=== PATIENT | female | born 1940 | race Caucasian/White ===

== ENCOUNTER 2018-01-01 19:28 | Emergency (ER) | payer OTHER, MEDICAID ==
[2018-01-01] MEDS ORDERED: HYDROCOD/APAP 5/325 PREPACK#6 BTL TAKEHOME ONE (22:23)
--- NOTE | 2018-01-01 22:23 | EDPHY ---
H & P Time Seen by Provider: 01/01/18 21:39 HPI/ROS: CHIEF COMPLAINT: Right knee pain HISTORY OF PRESENT ILLNESS: The patient is a 77-year-old female who presents emergency department after dislocating her right patella on . The patient states she slipped and fell. She noticed her patella off to the side. She pushed it popped back into place. She now has right knee swelling. She has ongoing discomfort. No numbness or tingling. No other injury. REVIEW OF SYSTEMS: My complete review of systems is negative except as mentioned in the HPI. Past Medical/Surgical History: Includes hypertension, cataracts Smoking Status: Never smoked Physical Exam: 37.2, 192/95, 84, 18, 95% on room air General Appearance: Alert and no distress. Head: Pupils equal. Normal. Respiratory: No respiratory distress. Cardiac: regular rate and rhythm. Extremities: The patient has swelling on her right knee. There is mild patellar tenderness to palpation. No crepitus. The patient has an abrasion but no laceration. Neurovascular intact distally. Skin: No rashes or lesions. Neuro: Alert. Normal mood and affect. Constitutional: Initial Vital Signs Temperature (C) 37.2 C 01/01/18 20:00 Heart Rate 84 01/01/18 20:00 Respiratory Rate 18 01/01/18 20:00 Blood Pressure 192/95 H 01/01/18 20:00 O2 Sat (%) 95 01/01/18 20:00 O2 Delivery Mode Room Air Allergies/Adverse Reactions: No Known Allergies Allergy (Unverified 01/01/18 20:00) Home Medications: Medication Instructions Recorded Hydrocodone/APAP 5/325 [Reno 1 - 2 tab PO Q4 #13 tab 01/01/18 5/325 (RX)] Lisinopril 01/01/18 Medical Decision Making - Diagnostics Imaging Results: Imaging Impressions Knee X-Ray 01/01/18 20:46 Impression: Acute displaced and partially-comminuted fracture of the mid-pole of the patella. ED Course/Re-evaluation: In the emergency department I discussed possible etiologies with the patient. I answered all her questions. X-ray right knee was performed. Right knee x-ray: Please refer the dictated report. The patient has a comminuted fracture of the patella. I discussed the results with the patient. I answered all her questions. Patient was placed in a knee immobilizer. She was given crutches. I contacted Orthopedics to arrange close follow-up. Patient was given warnings prior to leaving. Differential Diagnosis: My differential includes but is not limited to fracture, dislocation, contusion , sprain Departure - Departure Disposition: Home, Routine, Self-Care Clinical Impression: Patella fracture Qualifiers: Encounter type: initial encounter Fracture type: closed Fracture morphology: unspecified fracture morphology Fracture alignment: displaced Laterality: right Qualified Code(s): S82.001A - Unspecified fracture of right patella, initial encounter for closed fracture Condition: Good Instructions: Patellar Fracture (ED) Additional Instructions: Keep your splint in place. Use your crutches. You need close follow-up with Orthopedics. You have a broken patella. Referrals: Lefty Willingham MD [Medical Doctor] - 2-3 days without fail Prescriptions: Hydrocodone/APAP 5/325 [Reno 5/325 (RX)] 1 - 2 tab PO Q4 #13 tab
[2018-01-01 23:00] VITALS: BP 190/90
== END 2018-01-01 22:58 | disposition home or self-care (01) ==
DX: S82.041A Displaced comminuted fracture of right patella, initial encounter for closed fracture (principal); I10 Essential (primary) hypertension; W01.0XXA Fall on same level from slipping, tripping and stumbling without subsequent striking against object, initial encounter
CPT/HCPCS: L1830

== ENCOUNTER 2018-01-12 12:30 | Inpatient (IN) | payer OTHER, MEDICAID ==
[2018-01-12] MEDS ORDERED: ONDANSETRON 4 MG/2 ML VIAL IVP PRN (17:35)
[2018-01-12] MEDS ORDERED: HYDROmorphONE/DILAUDID 1 MG/ML INJ IVP PRN (17:35)
[2018-01-12] MEDS ORDERED: traMADol 50 MG TAB PO PRN (17:35)
[2018-01-12] MEDS ORDERED: HYDROmorphone HCL/NS 0.5 MG/ML SYR IVP PRN (17:39)
--- NOTE | 2018-01-12 19:44 | CPEKG ---
Heart Rate: 71 RR Interval: 845 P-R Interval: 160 QRSD Interval: 84 QT Interval: 380 QTC Interval: 413 P Gallup: -12 QRS Gallup: 8 T Wave Gallup: 52 EKG Severity - NORMAL ECG - EKG Impression: SINUS RHYTHM EKG Impression: AGREE WITH ABOVE Electronically Signed By: Alvino Doan 12-Jan-2018 20:27:06
[2018-01-12 20:24] LABS: PLATELET COUNT 388 10^3/uL (150-400)
--- NOTE | 2018-01-12 21:53 | GHP ---
[f rep st] HISTORY AND PHYSICAL DATE OF ADMISSION: 01/12/2018 CHIEF COMPLAINT: Patellar fracture, uncontrolled hypertension. HISTORY OF PRESENT ILLNESS: The patient is a 77-year-old female, who fell at home from a step on Dec, and sustained a patellar fracture. She needs an ORIF with Dr. Willingham, however, her uncontr olled hypertension has prohibited moving forward with surgery. She has a known history of hypertensi on, although she was trying to treat it with diet and lifestyle, but when surgery was refused due to her elevated blood pressure, she did get a primary care doctor and started on lisinopril only 5 days ago. Her surgery is now considered by Dr. Willingham to be urgent as she is unable to walk, so she is being admitted to the hospital for adequate blood pressure control to undergo anesthesia. On the adv ice of her new primary care doctor, since her blood pressures were remaining elevated, she was told t o take a 2nd 20 mg dose of lisinopril tonight, which she did prior to arriving in the hospital, and s he is now feeling very dizzy with a blood pressure of 136/73. PAST MEDICAL HISTORY: Hypertension. PAST SURGICAL HISTORY: Cataracts. MEDICATIONS: Please see computer's record for full detailed list. Lisinopril, new medications start ed just 5 days ago. ALLERGIES: No known drug allergies. SOCIAL HISTORY: No smoking. No alcohol. She lives with her . She is very active at [employer]. REVIEW OF SYSTEMS: Complete review of systems obtained. Review of systems negative for constitution al, HEENT, GI, pulmonary, vascular, , hematology, skin, musculoskeletal, endocrine, psychiatric, ex cept for positives and negatives as in HPI. FAMILY HISTORY: Reviewed, noncontributory due to presenting complaint. PHYSICAL EXAMINATION: GENERAL: Well-developed, well-nourished female, in no acute distress. VITAL SIGNS: Temperature 37.0, pulse 77, blood pressure 175/88, satting 93% on room air. EYES: Normal co njunctivae. Pupils round, react to light. ENT: Normal ears, nose. Hearing intact. Normal teeth. Oropharynx moist. NECK: Trachea midline. No thyromegaly. CHEST: Normal respiratory effort. DOM GS: Clear to auscultation bilaterally. CARDIOVASCULAR: Regular rhythm. No murmur. No extremity e francis. ABDOMEN: Soft, nontender. No hepatosplenomegaly. SKIN: Warm, dry, intact, without rash. M USCULOSKELETAL: No cyanosis or clubbing. Strength 5/5 upper and lower extremities. NEUROLOGIC: Cr anial nerves intact. Normal sensation to light touch. PSYCHIATRIC: Alert and oriented x3. Normal mood and affect. Normal judgment and insight. Normal memory. LABORATORY DATA: White count 6.54, hematocrit 33, platelets 388. Sodium 139, potassium 4.3, chlorid e 103, bicarb 26, BUN 20, creatinine 0.8, glucose 125. DIAGNOSTIC STUDIES: EKG, viewed by me, my personal interpretation is normal sinus rhythm, no ST-T wa ve changes. This case was discussed with Dr. Willingham regarding plan for surgery tomorrow. ASSESSMENT/PLAN: 1. Patellar fracture. She may proceed with open reduction internal fixation with Dr. Tarsha mayorga. We will ensure she has adequate blood pressure control to undergo anesthesia. 2. Hypertension, uncontrolled. She was untreated for her essential hypertension until 5 days ago an d she is, therefore, relatively new to lisinopril. She took an extra 20 mg of lisinopril tonight and she is now feeling very dizzy. I think acutely we need to control her blood pressure to an adequate degree for her to undergo anesthesia. Postoperatively, however, I would return her to the 20 mg of lisinopril once a day dose, and not up-titrate too quickly given her complaints of dizziness at the 4 0 mg dose at this time. Intravenous hydralazine can be used to acutely reduced blood pressure prior to surgery, but I do not think it will be needed since she took this extra oral lisinopril dose this evening. CODE STATUS: Full. ADMISSION STATUS: 1. We will admit to Observation, reevaluate tomorrow regarding ongoing need for hospitalization. 2. Deep venous thrombosis prophylaxis. This can be readdressed postoperatively. /[id number]/MODL
[2018-01-13] MEDS: hydrALAZINE 20 MG/ML VIAL IVP PRN ×2 (04:34→15:30)
--- NOTE | 2018-01-13 10:05 | ASMTCMCOM ---
CM Note CM Note Notes: Patient admitted for ORIF of her R patellar fracture. She sustained the fracture on 12/31/17 but d/t uncontrolled hypertension has been unable to proceed surgically until now. The procedure is scheduled for 1230 today. Patient is normally active, lives with . PT/OT will evaluate her post-operatively, and Case Managment will faciliate discharge planning. Date Signed: 01/13/2018 10:04 AM Electronically Signed By:Susana Gamboa RN
[2018-01-13] MEDS ORDERED: BUPIVACAINE 0.25% 30 ML SDV ONE (10:16)
[2018-01-13] MEDS: LISINOPRIL 20 MG TAB PO SCH (10:51)
--- NOTE | 2018-01-13 10:51 | HOSPPROG ---
Hospitalist Progress Note Assessment/Plan: Accelerated hypertension - BP low this am, though she had IV hydral at 0400. Now back up to 130's/70's. Ok to go to surgery today. -cont lisinopril 20 mg daily (though this was Rx'd 5 days ago, she apparently had not been taking it) Patellar fracture - operative repair per ortho today -post-op PT/OT Full code Dispo - change to inpt, will need an additional night to monitor BP and acute PT /OT post-operatively Subjective: Pt feels well. Denies dizziness, CP or SOB. NPO this am for surgery. Objective: Vital Signs Temp Pulse Resp BP Pulse Ox 36.7 C 80 16 114/55 L 93 01/13/18 08:11 01/13/18 08:11 01/13/18 08:11 01/13/18 08:11 01/13/18 08:11 Laboratory Results 01/12/18 20:12 01/12/18 20:12 01/12/18 01/13/18 01/14/18 05:59 05:59 05:59 Intake Total 540 Balance 540 - Physical Exam Constitutional: no apparent distress Eyes: PERRL Ears, Nose, Mouth, Throat: moist mucous membranes Cardiovascular: regular rate and rhythym Respiratory: no respiratory distress, clear to auscultation Gastrointestinal: normoactive bowel sounds, soft, non-tender abdomen Skin: warm Musculoskeletal: other (right knee mobilizer, 2+ DP's b/l, ext warm) Neurologic: AAOx3 Psychiatric: interacting appropriately ICD10 Worksheet Patient Problems: Problems Problem Status Onset Patellar fracture Acute - ICD10 Problem Qualifiers (1) Patellar fracture Qualifiers: Encounter type: initial encounter Fracture type: closed Fracture morphology: other fracture Laterality: right Qualified Code(s): S82.091A - Other fracture of right patella, initial encounter for closed fracture
[2018-01-13] MEDS ORDERED: D5W NS 1,000 ML IV SCH (11:00)
--- NOTE | 2018-01-13 11:40 | PDMN ---
Medical Necessity Medical necessity: Change to IP, as of 01/13/18, per MD; los >2 mn for ongoing management of accelerated htn & patellar fx; admit for further monitoring, surgical intervention, IVFs, med managament & therapies; hx htn; per progress note & order 01/13/18
[2018-01-13] MEDS ORDERED: LR 1,000 ML IV SCH (11:54)
[2018-01-13] MEDS ORDERED: NS 1,000 ML IV SCH (11:54)
[2018-01-13] MEDS ORDERED: ceFAZolin 2 GM/SWFI 2 GM/20 ML SYR IVP ONE (11:54)
[2018-01-13] MEDS ORDERED: LR 1,000 ML IV ONE (12:12)
[2018-01-13] MEDS ORDERED: BUPIVACAINE 0.5% 30 ML SDV ONE (12:16)
[2018-01-13] MEDS ORDERED: fentaNYL 100 MCG/2 ML INJ ONE ×4 (12:18→15:12)
[2018-01-13] MEDS ORDERED: PROPOFOL 200 MG/20 ML VIAL ONE (12:18)
[2018-01-13] MEDS ORDERED: ONDANSETRON 4 MG/2 ML VIAL ONE (12:22)
[2018-01-13] MEDS ORDERED: KETOROLAC 30 MG/1 ML SDV ONE (12:22)
[2018-01-13] MEDS ORDERED: DEXAMETHASONE 4 MG/ML VIAL ONE (12:22)
--- NOTE | 2018-01-13 12:22 | PDHPUP ---
History & Physical Update H&P update statement: This history and physical update is based on an assessment of the patient which was completed after admission or registration (within 24 hours), but prior to the surgery/procedure. H&P update: changes noted (HTN better controlled after being admitted. Cleared for sx by hospitalists. Appreciate their reccs. ) H&P changes: Patient seen/examined in conjunction with Dr. Willingham.
[2018-01-13] MEDS ORDERED: PHENYLEPHRINE HCL 100 MCG/ML SYR ONE (13:14)
[2018-01-13] MEDS ORDERED: epHEDrine SULFATE 10 MG/ML SYR ONE (13:14)
--- NOTE | 2018-01-13 13:27 | PDANEPAE ---
ANE Past Medical History - Cardiovascular History Hx Hypertension: Yes Hx Arrhythmias: No Hx Chest Pain: No Hx Coronary Artery / Peripheral Vascular Disease: No Hx CHF / Valvular Disease: No Hx Palpitations: No Cardiovascular History Comment: 01-06-18 BP was high at PCP's office -instructed pt to increase her Lisinopril to 40mg. Mild anemia per PCP. - Pulmonary History Hx COPD: No Hx Asthma/Reactive Airway Disease: No Hx Recent Upper Respiratory Infection: No Hx Oxygen in Use at Home: No Hx Sleep Apnea: No Sleep Apnea Screening Result - Last Documented: Negative - Neurologic History Hx Cerebrovascular Accident: No Hx Seizures: No Hx Dementia: No - Endocrine History Hx Diabetes: No Obesity: no - Renal History Hx Renal Disorders: No - Liver History Hx Hepatic Disorders: No - Neurological & Psychiatric Hx Hx Neurological and Psychiatric Disorders: No - Cancer History Hx Cancer: No - Congenital Disorder History Hx Congenital Disorders: No - GI History Hx Gastrointestinal Disorders: No - Other Health History Other Health History: fell-fx R patella - Chronic Pain History Chronic Pain: No - Surgical History Prior Surgeries: bilat cataract sx ANE Review of Systems Review of systems is: negative Review of Systems: - Exercise capacity METS (RN): 5 METS ANE Patient History - Allergies Allergies/Adverse Reactions: No Known Allergies Allergy (Verified 01/12/18 16:48) - Home Medications Home medications: home medication list seen and reviewed Home Medications: Lisinopril [Lisinopril] 20 mg PO DAILY 01/12/18 [Last Taken 01/12/18] - NPO status NPO Since - Liquids (Date): 01/12/18 NPO Since - Liquids (Time): 19:00 NPO Since - Solids (Date): 01/12/18 NPO Since - Solids (Time): 19:00 - Anes Hx Anes Hx: no prior problems - Smoking Hx Smoking Status: Never smoked ANE Labs/Vital Signs - Labs Result Diagrams: 01/12/18 20:12 01/12/18 20:12 - Vital Signs Blood Pressure: 156/73 Heart Rate: 78 Respiratory Rate: 16 O2 Sat (%): 92 Height: 157 cm Weight: 52 kg ANE Physical Exam - Airway Neck exam: FROM Mallampati Score: Class 2 Mouth exam: dentures - Pulmonary Pulmonary: no respiratory distress - Cardiovascular Cardiovascular: regular rate and rhythym - ASA Status ASA Status: II ANE Anesthesia Plan Anesthesia Plan: GA w LMA Regional Anesthesia: single shot NB, adductor canal FNB, POPC/PSR Urgent/Emergent Case: Anes eval completed preop but documented later for safe timely pt care
--- NOTE | 2018-01-13 13:46 | POSTANESTH ---
Post Anesthetic Evaluation Cardiovascular Status: Normal, Stable Respiratory Status: Normal, Stable Level of Consciousness/Mental Status: Can Participate in Eval Pain Control: Adequate, Prn Tx Ordered Nausea/Vomiting Control: Adequate, Prn Tx Ordered Complications Possibly Related to Anesthesia: None Noted
[2018-01-13] MEDS ORDERED: ALBUTEROL 3 ML DEYVIAL IH PRN (14:17)
[2018-01-13] MEDS ORDERED: HYDROmorphONE/DILAUDID 2 MG/ML INJ IVP PRN (14:17)
[2018-01-13] MEDS ORDERED: LR 500 ML IV PRN (14:17)
[2018-01-13] MEDS ORDERED: ACETAMINOPHEN 500 MG TAB PO PRN (14:17)
[2018-01-13] MEDS ORDERED: HYDROCODONE/APAP 5/325 TAB PO PRN (14:17)
[2018-01-13] MEDS ORDERED: NALOXONE HCL 0.4 MG/ML INJ IVP PRN ×2 (14:17→15:23)
[2018-01-13] MEDS ORDERED: oxyCODONE IR 5 MG TAB PO PRN (14:17)
[2018-01-13] MEDS ORDERED: ONDANSETRON 4 MG/2 ML VIAL IVP PRN (14:17)
[2018-01-13] MEDS ORDERED: PROMETHAZINE HCL 25 MG/ML INJ IVP PRN (14:17)
[2018-01-13] MEDS ORDERED: LABETALOL HCL 5 MG/ML 20 ML MDV ONE (14:20)
--- NOTE | 2018-01-13 14:45 | POSTOPPROG ---
Post Op Note Date of Operation: 01/13/18 Surgeon: Lefty Willingham Paper Twister: Cleopatra Freire, JOSE Anesthesia: GET(General Endotracheal) Pre-op Diagnosis: Right patella transverse fracture Post-op Diagnosis: Right patella transverse fracture Procedure: Right patella ORIF Inf/Abcess present in the surg proc area at time of surgery?: No Depth: Deep Incisional (Fascial) EBL: Minimal Complications: None.
[2018-01-13] MEDS: fentaNYL 100 MCG/2 ML INJ IVP PRN ×2 (15:15→15:35)
[2018-01-13] MEDS ORDERED: LABETALOL HCL 5 MG/ML 20 ML MDV IVP PRN (15:23)
[2018-01-13] MEDS ORDERED: ENALAPRILAT DIHYDRATE 1.25 MG/ML VIAL IVP PRN (15:23)
[2018-01-13] MEDS ORDERED: hydrALAZINE 20 MG/ML VIAL ONE (15:28)
--- NOTE | 2018-01-13 15:41 | GOP ---
[f rep st] OPERATIVE REPORT DATE OF OPERATION: 01/13/2018 SURGEON: Lefty Willingham MD ANNOUNCER: Cleopatra Freire PA-C ANESTHESIA: General plus adductor block. ANESTHESIOLOGIST: Dr. Arias PREOPERATIVE DIAGNOSIS: Right patella fracture. POSTOPERATIVE DIAGNOSIS: Right patella fracture. PROCEDURE PERFORMED: Open reduction, internal fixation of right patella fracture with arthrotomy, irrigation and debridement including loose body removal, and retinacular repairs. FINDINGS: Distal, displaced, transverse patella fracture with complete disruption of the extensor mechanism, including retinacular tear, medial greater than lateral. There was a small bony loose body within the knee, approximately 8 mm in maximum dimension. There was abundant hematoma at the fracture site, as well as within the intra-articular space. The distal fragment of this fracture was somewhat comminuted. Overall bone quality was consistent with the patient's advanced age. SPECIMENS: None. ESTIMATED BLOOD LOSS: 10 cc. INDICATIONS: This is a 77-year-old female who suffered a fall injuring her right knee on 12/31/2017. She was seen at the [facility] ER on the day of injury and was placed in a splint. The patient was then seen by me, and due to hypertension, was organized with a PCP in order to attempt to establish control of this hypertension. The patient was started on a hypertensive med; however, due to continued hypertension, she was admitted overnight to the hospitalist service, which resulted in improved and controlled blood pressure for surgery today. The risks, benefits, and alternatives to surgery were discussed with the patient. All of her questions were answered prior to surgery, including translation in facilitation with her son, as she speaks Gibraltarian only. Please see history and physical for additional information. Witnessed informed consent is in the patient's chart. DESCRIPTION OF PROCEDURE: Eleonora was identified in the preoperative holding area and her right knee was signed and designated as the operative site. The patient was confirmed in left lower extremity MALDONADO hose and SCDs. She was treated with 2 g prophylactic IV cefazolin per protocol. An adductor block was performed by the anesthesiologist. She was placed supine on the OR table and general anesthesia was obtained. The left lower extremity was placed on a well- padded OR table. Right lower extremity was wrapped proximally with cast padding and a nonsterile tourniquet and prepped and draped in the usual sterile manner. Mini C-arm was also prepped and draped during surgery for sterile use in order to confirm hardware positioning, as well as overall fracture reduction. A midline incision directly over the patella was utilized for the surgery. This was centered at the patella and over a length of approximately 8 cm. Full- thickness dermal incision was made after Esmarch exsanguination and inflation of the tourniquet. Careful dissection was taken down through the subcutaneous fat. The extensor retinaculum was hemorrhagic and portions of it were ruptured. It was thickened and this was divided in parallel with the skin incision. Dissection was carried down to the level of the fracture site. There was abundant hematoma, which was irrigated, debrided, and suctioned. The bone edges were then cleared of all soft tissues. The retinacular tears were evaluated and also cleansed and debrided of any unhealthy appearing tissue or hemorrhagic tissues. Once this was completed, retractors were placed and the joint was entered without any additional incision in the capsule. A loose body was found in the intercondylar notch region, i.e., anterior to the ACL, which was removed with a rongeur. This was a small bony piece removed from the patella. Once this was completed, the joint was copiously irrigated with sterile saline and all hematoma was evacuated from the joint. My finger was used to sweep up and down the medial and lateral gutters, as well as suprapatellar pouch, dividing any adhesions and/or other hematoma. In addition , inferior to the fracture throughout the anterior interval of the knee was swept again to remove any hematoma. Once the articular space was completely cleared of any hematoma and washed out, the fracture site was further evaluated. Provisional reduction and fixation were achieved with a bony tenaculum. Once this was confirmed achievable and appropriate, K-wires were used in a retrograde/antegrade manner, i.e., through the fracture site up through the proximal pole of the patella. Once this was achieved, the reduction was then performed and the K-wires were advanced down through the distal segment. Again, reduction was held in position with a single bony tenaculum. Once the K-wires were in the appropriate position and exposed, a 16- gauge Angiocath was used to pass an 18-gauge wire underneath the 2 K-wires. These were then crossed over in a [id number] position and a tension band construct was created. This was tensioned on both medial and lateral sides in order to achieve appropriate and optimized compression at the fracture site. Once this was completed and the ends of the wires were cut and bent down into the soft tissues medial lateral, the K-wires were bent and cut to be optimized in position and to assure capture of the 18-gauge wire. Once all work was completed, finalized images were taken and reduction was confirmed. The hardware was confirmed in the appropriate position. The wound was then further irrigated and closure was begun. #1 Ethibond was used to repair the retinacular rupture in all necessary sites. Additional sutures were placed through bone, as her bone quality was somewhat poor, in order to cerclage and further repair the soft tissues around the fracture. 0 Vicryl sutures were used to repair the retinacular split and ruptures. 2-0 Vicryl sutures were used to repair the deep dermal layer and close the wound edges. Skin was formally closed with edgar. The tourniquet was dropped prior to closure of the skin and hemostasis was confirmed to be appropriate. Sterile postoperative surgical dressings were applied. A MALDONADO hose was applied. The knee was then locked in full extension in a hinged knee brace. The anesthesia service then took over to wake the patient up. TOURNIQUET TIME: 70 minutes at 250 mmHg. DRAINS: None. IMPLANTS: 1.6 mm K-wires x2 and an 18-gauge cerclage wire x1. COMPLICATIONS: None. DISPOSITION: The patient was extubated and transferred to PACU in stable condition. /[id number]/MODL MTDD
[2018-01-13] MEDS: ACETAMINOPHEN 325 MG TAB PO PRN ×2 (16:50→23:57)
[2018-01-13] MEDS: oxyCODONE IR 5 MG TAB PO PRN (16:50)
[2018-01-13] MEDS ORDERED: LACTULOSE 20 GM/30 ML UDCUP PO PRN (23:47)
[2018-01-13] MEDS ORDERED: BISACODYL 10 MG SUPP PR PRN (23:47)
[2018-01-13] MEDS ORDERED: MAGNESIUM HYDROXIDE 30 ML UDCUP PO PRN (23:47)
[2018-01-13] MEDS ORDERED: POLYETHYLENE GLYCOL 3350 17 GM PKT PO PRN (23:47)
[2018-01-14 08:28] VITALS: BP 138/70
[2018-01-14] MEDS ORDERED: SENNOSIDES/DOCUSATE SODIUM TAB PO SCH (09:00)
[2018-01-14] MEDS ORDERED: ENOXAPARIN 40 MG/0.4 ML SYR SC SCH (09:00)
[2018-01-14] MEDS: oxyCODONE IR 5 MG TAB PO PRN ×2 (09:27→13:18)
[2018-01-14] MEDS: ACETAMINOPHEN 325 MG TAB PO PRN (09:28)
[2018-01-14] MEDS: LISINOPRIL 20 MG TAB PO SCH (09:33)
--- NOTE | 2018-01-14 11:14 | SOAPPROG ---
SOAP Progress Note Assessment/Plan: Assessment: POD #1: R patella ORIF: doing well, pain well controlled. Compliant with restrictions. HTN better controlled. Plan: -NWB to right lower extremity unless locked in extension brace. If locked in extension brace, is WBAT. -PT/OT eval for safe ambulation, appreciate their reccs. -HTN: continue plan per hospitalists, appreciate their reccs. F/U with PCP upon D/C. -DVT: Begin Lovenox POD#1 for 14 days. New Rx should be given from [facility]. SCDs. IS. MALDONADO hose. -F/U in clinic in 7-10 days or prn additional questions/concerns which may arise. -Pain control: patient was given an at home Rx from our office for narcotics. -Dressing: maintain dry dressing. Do not change without consult to our office. -Language barrier-[place]ian speaking: patient has numerous family members and a private paraprofessional interpreter which can be contacted for assistance as well. -Questions call our office at [phone]. -Ok to D/C once cleared by hospitalists, CM, PT/OT. Patient seen/discussed with Dr. Willingham. 01/14/18 11:09 01/14/18 11:20 Subjective: Able to respond appropriately to yes/no questions but unable to fully converse due to language barrier; patient is [place] speaking. Denies cough, congestion, chest pain, difficulty breathing, abnormal bleeding/oozing/discharge, change in heat/color of extremities, loss of distal ROM or strength. Objective: Vital Signs Temp Pulse Resp BP Pulse Ox 37.2 C 68 18 138/70 H 94 01/14/18 08:00 01/14/18 08:00 01/14/18 08:00 01/14/18 08:00 01/14/18 08:00 Laboratory Results 01/12/18 20:12 01/12/18 20:12 01/13/18 01/14/18 01/15/18 05:59 05:59 05:59 Intake Total 540 3090 Output Total 1070 300 Balance 540 2020 -300 A/o. Able to respond appropriately to questions. NAD. Non-labored breathing. No diaphoresis. M/S: Right knee in brace and dry dressing with MALDONADO hose and no abnormal bleeding /oozing/discharge. No change in heat/color of extremities b/l. Passive ROM in great toe in all planes produced no reproducible pain in lower compartments. DNVI b/l with gross sensation intact and no focal deficits. Brisk cap refill b/ l in lower extremities with negative b/l Homans. Calves soft/supple and NTTP b/ l. 5/5 strength in b/l ankles and feet. - Pending Discharge Pending Discharge Within 24 Hours: Yes Pending Discharge Date: 01/15/18 (Cleared by hospitalists.) Pending Discharge Time: 11:00 ICD10 Worksheet Patient Problems: Problems Problem Status Onset Patellar fracture Acute
--- NOTE | 2018-01-14 13:21 | GDS ---
[f rep st] DISCHARGE SUMMARY DISCHARGE DIAGNOSES: 1. Right patellar fracture status post open reduction and internal fixation with irrigation and debridement including loose body removal and retinacular repairs on January 13, 2018, by Dr. Lefty Willingham. 2. Accelerated hypertension, improved. HISTORY: For details, please see the dictated history and physical dated January 12, 2018. In brief, the patient is a 77-year-old Beninese-speaking female who presents to the emergency department after a fall at home on December 31 caused a patellar fracture. She was to undergo ORIF with Dr. Willingham in the outpatient setting. However, her uncontrolled hypertension prohibited proceeding with surgery. She was admitted to the hospital for blood pressure control and surgical intervention. HOSPITAL COURSE: The patient was admitted to the ortho unit. She was started on lisinopril 20 mg daily 5 days prior to admission by her primary care physician. Her family reports she actually has not been taking the medication as she had not filled it from the pharmacy. She was told to take an additional dose of lisinopril the evening prior to admission due to high blood pressures, so actually took 40 mg that day when she had previously not been taking any. Upon arrival to the hospital, she then received IV hydralazine and became a bit hypotensive. She was put back on her original dose of lisinopril 20 mg. Her blood pressures have been 120s to 130s over 60s. She was stable for operative intervention, which she underwent on January [address] Willingham. She was monitored in the hospital for an additional evening for acute PT, OT, pain control, and blood pressure management. She was evaluated by our therapy services who felt she was appropriate to discharge home independently. She is normotensive on the day of discharge. DISPOSITION: The patient is discharged home in stable condition. FOLLOWUP: 1. Pilar Cummings DO, primary care. 2. Lefty Willingham MD, Orthopedic Surgery. DISCHARGE MEDICATIONS: Please see IPG for completed outpatient medication list. New medications on discharge include: 1. Xarelto 10 mg daily x14 days 2. Tylenol 1000 mg p.o. q.8 hours, #90, no refills. 3. Celebrex 200 mg p.o. daily, #14, no refills. 4. Tramadol 25 to 50 mg p.o. q.8 hours p.r.n., #20, no refills. 5. Senokot 1 to 2 tablets p.o. b.i.d. p.r.n. /[id number]/BRITTANY ADRIAN
[2018-01-14] MEDS ORDERED: PNEUMOC 13-VAL CONJ-DIP CRM/PF 0.5 ML SYR IM ONE (14:38)
== END 2018-01-14 16:00 | disposition home or self-care (01) | DRG 517 ==
LOC: F3N 17:20 → OBSVTOIN 17:33
PROVIDERS: ADMIT Internal Medicine; ATTEND Orthopaedic Surgery
PROC: 0QSD04Z Reposition Right Patella with Internal Fixation Device, Open Approach (ICD-10-PCS; principal; 2018-01-13 12:30)
DX: S82.031A Displaced transverse fracture of right patella, initial encounter for closed fracture (principal); W10.9XXA Fall (on) (from) unspecified stairs and steps, initial encounter; Y92.009 Unspecified place in unspecified non-institutional (private) residence as the place of occurrence of the external cause; I10 Essential (primary) hypertension
CPT/HCPCS: 97161-GP; 97165-GO; C1713; G0009; G8978-GP-CK; G8979-GP-CJ; G8987-GO-CI; G8988-GO-CI; G8989-GO-CI; J0171; J0360; J0690; J1100; J1170; J1650; J1885; J2370; J2405; J2704; J3010; L1832

== ENCOUNTER 2019-03-15 11:42 | Emergency (ER) | payer OTHER, MEDICAID | END 2019-03-15 13:23 | disposition home or self-care (01) ==